=== PATIENT | female | born 1985 | race Caucasian/White ===

== ENCOUNTER 2017-12-09 10:06 | Emergency (ER) | payer MEDICAID ==
[2014-05-23 08:58] VITALS: BMI 26.7
[~2017-12-09 10:06] MED LIST: CATAPRES0.2 MG PO; EFFEXOR75 MG PO; NORCO 10/325 TA1 TA1 PO; PHENERGAN12.5 MG PO; SURFAK240 MG PO; ULTRAM50 MG PO; XANAX0.25 MG PO; XANAX0.5 MG PO
[2017-12-09 10:43] LABS: BASOPHILS 0.2 % (0-2); EOSINOPHILS 0.9 % (0-7); HEMATOCRIT 43.5 % (36.0-48.0); HEMOGLOBIN 14.1 g/dL (12-16); IMMATURE GRANULOCYTES 0.3 % (0-5); LYMPHOCYTES 22.8 % (15-50); MCH 30.8 pg (26.0-34.0); MCHC 32.4 g/dL (31.0-37.0); MEAN PLATELET VOLUME 9.5 fL (7.4-10.4); MONOCYTES 4.8 % (2-11); PLATELET COUNT 280 10x3/uL (130-400); RBC 4.58 10x6/uL (4.00-5.40); RDW 14.2 % (11.5-14.5); WBC 14.9 10x3/uL (4.8-10.8)
[2017-12-09 10:55] LABS: ALBUMIN 3.9 g/dL (3.4-5.0); ANION GAP 12.9 mmol/L (8-16); BILIRUBIN - TOTAL 0.29 mg/dL (0.2-1.3); CALCIUM 8.6 mg/dL (8.5-10.1); CARBON DIOXIDE 24.6 mmol/L (21.0-32.0); MAGNESIUM - SERUM 1.9 mg/dL (1.8-2.4); POTASSIUM - SERUM 3.5 mmol/L (3.5-5.1)
== END 2017-12-09 12:25 | disposition home or self-care (01) ==
LOC: D.ER 10:06
PROVIDERS: Emergency Medicine
DX: R56.9 Unspecified convulsions (principal); F17.200 Nicotine dependence, unspecified, uncomplicated; F12.90 Cannabis use, unspecified, uncomplicated